=== PATIENT | female | born 1990 | race Caucasian/White ===

== ENCOUNTER 2016-12-08 08:59 | Emergency (ER) | payer OTHER ==
[2016-12-08 09:07] VITALS: TEMP 97.9; BMI 24.2
--- NOTE | 2016-12-08 09:32 | PDOC ---
History of Present Illness - General Chief Complaint: Pain, Acute Stated Complaint: RT SIDE PAIN, BACK Time Seen by Provider: 12/08/16 09:27 History Source: Patient Exam Limitations: No Limitations - History of Present Illness Initial Comments: 12/08/16 09:32 CHIEF COMPLAINT: Flank pain HISTORY OF PRESENT ILLNESS: This is an otherwise healthy 26 year old female who presents ambulatory to the ED with her mother and daughter complaining of two weeks of right flank pain. The pain is intermittent and the patient is unable to identify any exacerbating or palliating factors. She denies any trauma/ injury prior to the onset of symptoms. She denies any associated dysuria, hematuria, nausea/vomiting, fevers/chills, and constipation/diarrhea. She has not yet tried any OTC remedies for the pain. Family history is notable for mother with polycystic kidney disease. Vital signs on arrival are unremarkable. REVIEW OF SYSTEMS: GENERAL/CONSTITUTIONAL: No fever or chills. No weakness. No weight change. CARDIOVASCULAR: No chest pain or palpitations. RESPIRATORY: No cough, wheezing, or shortness of breath. GASTROINTESTINAL: No nausea, vomiting, diarrhea or constipation. GENITOURINARY: See HPI. MUSCULOSKELETAL: No joint or muscle swelling or pain. No neck or back pain. SKIN: No rash or easy bruising. NEUROLOGIC: No headache, vertigo, loss of consciousness, or loss of sensation. PSYCHIATRIC: No depression or anxiety. ENDOCRINE: No increased thirst. No abnormal weight change. HEMATOLOGIC/LYMPHATIC: No anemia, easy bleeding, or history of blood clots. ALLERGIC/IMMUNOLOGIC: No hives or skin allergy. No latex allergy. PHYSICAL EXAM: GENERAL: The patient is awake, alert, and fully oriented, in no acute distress. HEAD: Normal with no signs of trauma. ENT: Pupils equal, round and reactive to light, extraocular movements intact, sclera anicteric, conjunctiva clear. Neck supple. LUNGS: Clear to auscultation bilaterally. Normal excursion. No respiratory distress or use of accessory muscles. CV: RRR, S1/S2, no MRG. Cap refill < 2 sec. ABDOMEN: Soft, non-distended, mild RUQ tenderness to deep palpation. Right CVA tenderness. EXTREMITIES: Normal range of motion, no edema. NEUROLOGICAL: Normal speech, normal gait. CN II-XII grossly intact. PSYCH: Normal mood, normal affect. SKIN: Warm, dry, normal turgor, no rashes or lesions noted. Past History - Past Medical History Allergies/Adverse Reactions: Allergies Allergy/AdvReac Type Severity Reaction Status Date / Time ampicillin Allergy Severe Hives Verified 12/08/16 09:03 Home Medications: Ambulatory Orders NK [No Known Home Medication] 12/08/16 Other medical history: denies - Psycho/Social/Smoking Cessation Hx Anxiety: No Suicidal Ideation: No Smoking History: Never smoked Hx Alcohol Use: No Substance Use Type: None *Physical Exam - Vital Signs Last Vital Signs Temp Pulse Resp BP Pulse Ox 97.9 F 72 16 117/76 100 12/08/16 09:03 12/08/16 09:03 12/08/16 09:03 12/08/16 09:03 12/08/16 09:03 ED Treatment Course - LABORATORY CBC & Chemistry Diagram: 12/08/16 10:09 12/08/16 10:09 Medical Decision Making - Medical Decision Making 12/08/16 10:28 A/P: 26 year old female with two weeks of right flank pain. 1. UA reviewed: no leukocytesterase or nitrites. 2+ blood noted, however patient is menstruating. 2. Will obtain basic labs 3. Toradol 30mg IM for pain 12/08/16 10:38 WBC within normal limits at 8.2. Cr within normal limits at 0.8. LFTs unremarkable. 12/08/16 12:23 Gallbladder and renal u/s unremarkable. Patient is feeling better. Agrees to follow up with PCP and return for worsening symptoms. Return precautions reviewed. *DC/Admit/Observation/Transfer Diagnosis at time of Disposition: Flank pain - Discharge Dispostion Disposition: HOME Condition at time of disposition: Improved Admit: No - Patient Instructions Printed Discharge Instructions: DI for Flank Pain Additional Instructions: -You were seen today for flank pain. -Results of your lab work and ultrasounds did not reveal any cause for your pain (copies enclosed for your primary care doctor) -Take ibuprofen as prescribed for pain/inflammation -Return here for any new or concerning symptoms -Follow up with your primary care doctor in 1 -2 weeks if symptoms are not improving
[2016-12-08 09:55] LABS: URINE APPEARANCE CLEAR; URINE BILIRUBIN NEGATIVE (NEGATIVE); URINE COLOR LTYELLOW; URINE GLUCOSE (UA) NEGATIVE (NEGATIVE); URINE KETONE NEGATIVE (NEGATIVE); URINE LEUK ESTERASE NEGATIVE (NEGATIVE); URINE NITRITE NEGATIVE (NEGATIVE); URINE PROTEIN NEGATIVE (NEGATIVE); URINE UROBILINOGEN NEGATIVE E.U./dl (0.2-1.0)
[2016-12-08] MEDS ORDERED: KETOROLAC TROMETHAMINE 30 MG/1 ML VIAL IM ONE (09:56)
[2016-12-08 09:57] LABS: URINE BLOOD 2+ (NEGATIVE)
[2016-12-08] MEDS ORDERED: KETOROLAC TROMETHAMINE 30 MG/1 ML VIAL ONE (10:03)
[2016-12-08 10:13] LABS: URINE HYALINE CAST 1 /lpf; URINE MUCUS MODERATE; URINE RBC 2 /hpf (0-3); URINE WBC 1 /hpf (3-5)
[2016-12-08 10:28] LABS: BASOPHIL 0.8 % (0-2.0); EOSINOPHIL 1.9 % (0-4.5); MCH 26.3 pg (25.7-33.7); MCHC 32.7 g/dl (32.0-36.0); MEAN CELL VOLUME 80.5 fl (80-96); MEAN PLT VOLUME 7.9 fl (7.5-11.1); NEUTROPHILS 53.7 % (42.8-82.8); PLATELET COUNT 384 K/MM3 (134-434); RDW 13.4 % (11.6-15.6); WHITE BLOOD COUNT 8.2 K/mm3 (4.0-10.0)
[2016-12-08 10:49] LABS: ANION GAP 6 (8-16); CO2 28 mmol/L (21-32); CREATININE 0.8 mg/dL (0.55-1.02); GLUCOSE,RANDOM 87 mg/dL (74-106)
[2016-12-08 11:36] LABS: ALBUMIN 3.3 g/dl (3.4-5.0); ALK PHOS 77 U/L (45-117); BILIRUBIN,TOTAL 0.2 mg/dL (0.2-1.0); SGOT/AST 15 U/L (15-37); SGPT/ALT 13 U/L (12-78); TOT PROT 7.6 g/dl (6.4-8.2)
[2016-12-08 11:37] LABS: BILIRUBIN,DIRECT < 0.1 mg/dL (0.0-0.2)
--- NOTE | 2016-12-08 12:29 | PDOC ---
[id number] 100 12/08/16 09:03 12/08/16 09:03 12/08/16 09:03 12/08/16 09:03 12/08/16 09:03 ED Treatment Course - LABORATORY CBC & Chemistry Diagram: 12/08/16 10:09 12/08/16 10:09 - ADDITIONAL ORDERS Additional order review: Laboratory Results 12/08/16 12/08/16 10:09 09:40 Sodium 140 Potassium 4.5 Chloride 106 Carbon Dioxide 28 Anion Gap 6 L BUN 12 Creatinine 0.8 Random Glucose 87 D Calcium 9.0 Total Bilirubin 0.2 D Direct Bilirubin < 0.1 AST 15 D ALT 13 Alkaline Phosphatase 77 D Total Protein 7.6 Albumin 3.3 L Urine Color Ltyellow Urine Appearance Clear Urine pH 5.0 Ur Specific [place] 1.016 Urine Protein Negative Urine Glucose (UA) Negative Urine Ketones Negative Urine Blood 2+ H Urine Nitrite Negative Urine Bilirubin Negative Urine Urobilinogen Negative Ur Leukocyte Esterase Negative Urine RBC 2 Urine WBC 1 Ur Epithelial Cells Rare Hyaline Casts 1 Urine Mucus Moderate Urine HCG, Qual Negative 12/08/16 10:09 RBC 4.24 MCV 80.5 MCHC 32.7 RDW 13.4 MPV 7.9 Neutrophils % 53.7 D Lymphocytes % 36.6 D Monocytes % 7.0 Eosinophils % 1.9 Basophils % 0.8 - Medications Given in the ED: ED Medications Discontinued Medications Generic Name Dose Route Start Last Admin Trade Name Freq PRN Reason Stop Dose Admin Ketorolac Tromethamine 30 mg 12/08/16 09:56 12/08/16 10:07 Toradol Injection - IM 12/08/16 09:57 30 mg ONCE ONE Administration Medical Decision Making - Medical Decision Making 12/08/16 12:23 Patient seen and evaluated with the nurse practitioner. I agree with the overall evaluation, assessment, and management with the following summary of visit: Healthy 26-year-old female presents with 2 weeks of nonspecific right flank discomfort, no associated respiratory or GI complaints or complaints. No recollection of trauma. Agree with assessment and management as outlined, workup preliminarily negative. Patient looks well, understands return criteria and can follow-up with her primary physician., *DC/Admit/Observation/Transfer Diagnosis at time of Disposition: Flank pain - Discharge Dispostion Disposition: HOME - Prescriptions Prescriptions: Ibuprofen [Motrin -] 600 mg PO QID #20 tablet - Patient Instructions Printed Discharge Instructions: DI for Flank Pain Additional Instructions: -You were seen today for flank pain. -Results of your lab work and ultrasounds did not reveal any cause for your pain (copies enclosed for your primary care doctor) -Take ibuprofen as prescribed for pain/inflammation -Return here for any new or concerning symptoms -Follow up with your primary care doctor in 1 -2 weeks if symptoms are not improving
[2016-12-08 12:39] VITALS: BP 118/65; PULSE 70
== END 2016-12-08 12:39 | disposition home or self-care (01) ==
LOC: JER 08:59
PROC: 3E0233Z Introduction of Anti-inflammatory into Muscle, Percutaneous Approach (ICD-10-PCS; principal; 2016-12-08)
DX: R10.31 Right lower quadrant pain (principal)
CPT/HCPCS: 36415; 76705-TC; 76775-TC; 80048; 80076; 81003; 81015; 84703; 85025; 87086; 99283-25

== ENCOUNTER 2017-01-30 06:32 | Emergency (ER) | payer OTHER ==
[2017-01-30 06:56] VITALS: BMI 24.2
--- NOTE | 2017-01-30 07:47 | PDOC ---
History of Present Illness - General Chief Complaint: Toothache Stated Complaint: TOOTHACHE,HEADACHE Time Seen by Provider: 01/30/17 07:25 History Source: Patient Exam Limitations: No Limitations - History of Present Illness Initial Comments: 01/30/17 07:42 26-year-old female presents to the ED with complaints of left upper quadrant dental pain associated comes swelling and mild left temporal headache. Patient states symptoms have worsened over the past 4 days and took nothing for the pain he decided cut the ER. Patient states does see a dentist annually and has no known cavities. Patient also denies ear pain, neck stiffness, facial swelling , or fever. Timing/Duration: other (3 days) Associated Symptoms: reports: headaches Past History - Past Medical History Allergies/Adverse Reactions: Allergies Allergy/AdvReac Type Severity Reaction Status Date / Time ampicillin Allergy Severe Hives Verified 01/30/17 06:54 Home Medications: Ambulatory Orders Ibuprofen [Motrin -] 600 mg PO QID PRN 01/30/17 - Psycho/Social/Smoking Cessation Hx Anxiety: No Suicidal Ideation: No Smoking History: Never smoked Hx Alcohol Use: No Substance Use Type: None Patient Lives Alone: No Lives with/in: parents Review of Systems - Review of Systems Able to Perform ROS?: Yes Constitutional: No: Symptoms Reported HEENTM: Yes: Dental Problems. No: Throat Pain, Throat Swelling Respiratory: No: Symptoms reported ABD/GI: No: Nausea Musculoskeletal: No: Joint Pain Integumentary: No: Symptoms Reported Neurological: Yes: Headache (left temporal) *Physical Exam - Vital Signs Last Vital Signs Temp Pulse Resp BP Pulse Ox 98.8 F 84 16 126/78 98 01/30/17 06:55 01/30/17 06:55 01/30/17 06:55 01/30/17 06:55 01/30/17 06:55 - Physical Exam General Appearance: Yes: Nourished, Appropriately Dressed. No: Apparent Distress HEENT: positive: TMs Normal, Pharynx Normal, Other (noted erythematous and mildly edematous left upper quadrant gingiva above #14, 15. Teeth intact ith no obvious decay or broken portions) Integumentary: positive: Normal Color, Warm, Moist Neurologic: positive: Motor Strength 5/5 (ambulatory) Medical Decision Making - Medical Decision Making 01/30/17 07:46 Patient exam complaining of dental pain for the past few days and on exam had no obvious tooth decay or broken pieces but concerning for abscess secondary to edema to the left upper quadrant and gingiva and edema. Patient will be ordered for clindamycin and Percocet. Patient also states has an appointment with her dentist this week. *DC/Admit/Observation/Transfer Diagnosis at time of Disposition: Dental abscess - Discharge Dispostion Disposition: HOME Condition at time of disposition: Good - Patient Instructions Printed Discharge Instructions: DI for Tooth Abscess Additional Instructions: Please take medication as prescribed until completed. Please up with a dentist as discussed. If you take Percocet please or operate any machinery including a vehicle and if you need to take something different you may take Motrin 600 mg every 8 hours for pain
[2017-01-30 08:04] VITALS: BP 118/60; PULSE 80; TEMP 98.7
== END 2017-01-30 08:03 | disposition home or self-care (01) ==
LOC: JER 06:32
DX: K04.7 Periapical abscess without sinus (principal)
CPT/HCPCS: 99282-25

== ENCOUNTER 2019-04-16 11:18 | Emergency (ER) | payer OTHER ==
[2019-04-16 11:55] VITALS: BP 113/70; PULSE 70; TEMP 98.2; BMI 26.9
[2019-04-16 12:40] LABS: EPI CELLS 0.6 /HPF (0-5/HPF); HYALINE CASTS 33 /lpf (0-8); URINE APPEARANCE CLOUDY; URINE BACTERIA 2417.5 /hpf (NEGATIVE); URINE BILIRUBIN NEGATIVE (NEGATIVE); URINE COLOR YELLOW; URINE GLUCOSE (UA) NEGATIVE (NEGATIVE); URINE KETONE NEGATIVE (NEGATIVE); URINE LEUK ESTERASE 2+ (NEGATIVE); URINE NITRITE POSITIVE (NEGATIVE); URINE PROTEIN 1+ (NEGATIVE); URINE RBC 7 /hpf (0-4); URINE UROBILINOGEN 0.2 mg/dL (0.2-1.0); URINE WBC 173 /hpf (0-5)
[2019-04-16 12:41] LABS: HCG,QUALITATIVE URINE Negative
[2019-04-16] MEDS ORDERED: SULFAMETHOXAZOLE/TRIMETHOPRIM 800MG/160MG D.S. TABLET PO ONE (12:57)
--- NOTE | 2019-04-16 12:58 | PDOC ---
History of Present Illness - General Chief Complaint: Urinary Problem Stated Complaint: BACK PAIN Time Seen by Provider: 04/16/19 11:58 History Source: Patient - History of Present Illness Timing/Duration: reports: getting worse, resolved prior to arrival Pain Radiation: reports: flank Past History - Past Medical History Allergies/Adverse Reactions: Allergies Allergy/AdvReac Type Severity Reaction Status Date / Time ampicillin Allergy Severe Hives Verified 04/16/19 11:52 Home Medications: Ambulatory Orders Sulfamethoxazole/Trimethoprim [Bactrim Ds Tablet] 1 each PO BID #14 tablet 04/16 COPD: No - Suicide/Smoking/Psychosocial Hx Smoking History: Never smoked Hx Alcohol Use: No Substance Use Type: None Review of Systems - Review of Systems Constitutional: No: Chills, Fever, Malaise, Weakness : Yes: Dysuria, Flank Pain. No: Discharge, Frequency, Hematuria Musculoskeletal: Yes: Back Pain *Physical Exam - Vital Signs Last Vital Signs Temp Pulse Resp BP Pulse Ox 98.2 F 70 16 113/70 99 04/16/19 11:52 04/16/19 11:52 04/16/19 11:52 04/16/19 11:52 04/16/19 11:52 - Physical Exam General Appearance: Yes: Appropriately Dressed. No: Apparent Distress HEENT: positive: Normal Voice Neck: positive: Supple Respiratory/Chest: negative: Respiratory Distress Gastrointestinal/Abdominal: positive: Soft. negative: Tender, Distended, Guarding Musculoskeletal: positive: CVA Tenderness (R side) Integumentary: positive: Dry, Warm Neurologic: positive: Fully Oriented, Alert, Normal Mood/Affect ED Treatment Course - ADDITIONAL ORDERS Additional order review: Laboratory Results 04/16/19 12:12 Urine Color Yellow Urine Appearance Cloudy Urine pH 5.0 Ur Specific [place] 1.018 Urine Protein 1+ H Urine Glucose (UA) Negative Urine Ketones Negative Urine Blood 3+ H Urine Nitrite Positive H Urine Bilirubin Negative Urine Urobilinogen 0.2 Ur Leukocyte Esterase 2+ H Urine WBC (Auto) 173 Urine RBC (Auto) 7 Urine Casts (Auto) 33 U Epithel Cells (Auto) 0.6 Urine Bacteria (Auto) 2417.5 Urine HCG, Qual Negative Medical Decision Making - Medical Decision Making 04/16/19 12:58 28-year-old female, no significant history, here with dysuria w/ R flank pain x 4 days. Had 1 episode of nausea, vomiting yesterday that has since resolved. Denies any fever. No history of kidney stones see exam Early pyelo Stable and non-toxic appearing w/ R CVAT UA w/ +nit and LE, ucx pending, upreg neg -dose of IV abx here (pen allergic-will give levaquin) -dc w/ po abx and strict return precautions 04/16/19 14:32 Pt s/p dose of IV Levaquin here. Patient remained stable and will be discharged with bactrim pending urine culture (no prior sensitivities on record here). Strict return precautions given *DC/Admit/Observation/Transfer Diagnosis at time of Disposition: UTI (urinary tract infection) Qualifiers: Urinary tract infection type: site unspecified Hematuria presence: without hematuria Qualified Code(s): N39.0 - Urinary tract infection, site not specified - Discharge Dispostion Disposition: HOME Condition at time of disposition: Stable - Prescriptions Prescriptions: Sulfamethoxazole/Trimethoprim [Bactrim Ds Tablet] 1 each PO BID #14 tablet - Referrals Referrals: Minnie Barrera MD [Primary Care Provider] - - Patient Instructions Printed Discharge Instructions: Kidney Infection Additional Instructions: Take antibiotics as prescribed and if symptoms persist and/or worsen, return to ED immediately for admission - Post Discharge Activity Forms/Work/School Notes: Back to Work
== END 2019-04-16 14:43 | disposition home or self-care (01) ==
LOC: JERFT 11:18
DX: N39.0 Urinary tract infection, site not specified (principal)
CPT/HCPCS: 81003; 84703; 87086; 87186; 99282-25

== ENCOUNTER 2021-04-24 22:29 | Emergency (ER) | payer OTHER ==
[2021-04-24 22:35] VITALS: BP 140/81; PULSE 83; TEMP 98; BMI 25.7
[2021-04-25 00:02] LABS: HEMATOCRIT 36.6 % (32.4-45.2); HEMOGLOBIN 12.7 GM/dL (10.7-15.3); LYMPH % 29.1 % (8-40); MCH 29.7 pg (25.7-33.7); MCHC 34.6 g/dl (32.0-36.0); MEAN CELL VOLUME 85.8 fl (80-96); MEAN PLT VOLUME 7.8 fl (7.5-11.1); MONO % 5.2 % (3.8-10.2); NEUT % 63.7 % (42.8-82.8); PLATELET COUNT 339 10^3/uL (134-434); RBC 4.26 M/mm3 (3.60-5.2); RDW 13.2 % (11.6-15.6)
[2021-04-25 00:06] LABS: EPI CELLS 10 /uL (0-25.1); HYALINE CASTS 2 /uL (0-3.1); PH,URINE 5.5 (5.0-8.0); URINE APPEARANCE CLEAR; URINE BACTERIA 56 /uL (0-1359); URINE BILIRUBIN NEGATIVE (NEGATIVE); URINE COLOR YELLOW; URINE GLUCOSE (UA) NEGATIVE (NEGATIVE); URINE KETONE TRACE (NEGATIVE); URINE LEUK ESTERASE NEGATIVE (NEGATIVE); URINE NITRITE NEGATIVE (NEGATIVE); URINE PROTEIN NEGATIVE (NEGATIVE); URINE RBC 186 /uL (0-23.9); URINE WBC 15 /uL (0-25.8)
[2021-04-25 00:23] LABS: ALBUMIN 3.8 g/dl (3.4-5.0); BLOOD UREA NITROGEN 9.1 mg/dL (7-18); CALCIUM 9.1 mg/dL (8.5-10.1)
[2021-04-25 00:27] LABS: CREATININE 0.6 mg/dL (0.55-1.3)
[2021-04-25 00:28] LABS: BILIRUBIN,TOTAL 0.4 mg/dL (0.2-1)
[2021-04-25] MEDS ORDERED: RHO(D) IMMUNE GLOBULIN 1,500 UNIT DISP.SYRIN IM ONE (00:31)
== END 2021-04-25 02:10 | disposition home or self-care (01) ==
LOC: JER 22:29
DX: O20.0 Threatened abortion (principal); O41.8X10 Other specified disorders of amniotic fluid and membranes, first trimester, not applicable or unspecified; Z3A.10 10 weeks gestation of pregnancy
CPT/HCPCS: 36415; 76801-TC; 80053; 81003; 84702; 85025; 86850; 86870; 86900; 86901; 86902; 87086; 99284-25